=== PATIENT | male | born 1995 | race Caucasian/White ===

== ENCOUNTER 2025-02-06 03:31 | Emergency (ER) | payer OTHER ==
[~2025-02-06] VITALS: Ht 193 cm; Wt 122.0 kg
[2025-02-06 03:38] VITALS: TEMP 37; O2SAT 98
[2025-02-06] MEDS: TETRACAINE 0.5% OPHTH DROPS 4ML BOTHEYE ONE (04:18)
[2025-02-06] MEDS: FLUORESCEIN SODIUM 1MG/STRIP LEFTEYE ONE (04:19)
[2025-02-06] MEDS: IBUPROFEN 400MG TABLET PO ONE (04:37)
[2025-02-06] MEDS ORDERED: OCUFLX RIGHTEYE (05:03)
[2025-02-06] MEDS ORDERED: [UNRECOGNIZED DRUG - CODE] MC (05:04)
[2025-02-06 05:15] VITALS: BP 153/107; PULSE 89; RESP 18; O2SAT 99
== END 2025-02-06 05:18 | disposition home or self-care (01) ==
LOC: ER 03:31
DX: S05.01XA Injury of conjunctiva and corneal abrasion without foreign body, right eye, initial encounter (principal); E11.9 Type 2 diabetes mellitus without complications; W22.8XXA Striking against or struck by other objects, initial encounter; Y93.89 Activity, other specified; Y92.89 Other specified places as the place of occurrence of the external cause; Y99.8 Other external cause status
CPT/HCPCS: 99283